=== PATIENT | female | born 1945 | race Caucasian/White ===

== ENCOUNTER → 2016-08-30 | Emergency (ER) | payer MEDICARE, OTHER ==
[~2016-08-30] MED LIST: COREG6.25 MG PO; HYDROCHLOROTHIA25 MG PO; MIRALAX17 GM PO; NEURONTIN300 MG PO; NORCO 5-325 MG1 TAB PO; NORVASC5 MG PO; OMEPRAZOLE40 MG PO; TYLENOL EXTRA500 MG PO; TYLENOL PM EX-1 EACH PO; VITAMIN D1000 UNIT PO
== END | disposition disaster alternative care site (69) ==
LOC: GAMB 08:53
DX: R53.1 Weakness (principal); G47.9 Sleep disorder, unspecified; I10 Essential (primary) hypertension; E11.9 Type 2 diabetes mellitus without complications; E66.9 Obesity, unspecified; R53.83 Other fatigue; R41.82 Altered mental status, unspecified